=== PATIENT | female | born 1965 | race Caucasian/White ===

== ENCOUNTER → 2017-10-07 | Outpatient (CLI) | payer OTHER ==
--- NOTE | 2017-10-08 07:24 | RAD ---
Chest, 2 views, 10/07/2017: History: Cough, congestion, chest pain Comparison is made to a study from 09/03/2016. The heart size is normal. There are mild parenchymal scars. No acute infiltrate is seen. There is no evidence of pleural fluid. IMPRESSION: No acute cardiopulmonary abnormality is detected.
== END | disposition home or self-care (01) ==
LOC: RAD 18:54
PROVIDERS: ATTEND Nurse Practitioner Family
DX: R05 Cough (principal); R07.9 Chest pain, unspecified; D86.9 Sarcoidosis, unspecified
CPT/HCPCS: 71046

== ENCOUNTER 2018-06-06 21:04 | Emergency (ER) | payer OTHER ==
[~2018-06-06] VITALS: Ht 149.9 cm; Wt 80.5 kg
[2018-06-06] MEDS ORDERED: IV RINGERS SOLUTION,LACTATED 1,000 ML IV SCH (21:08)
[2018-06-06] MEDS ORDERED: VALPROATE SODIUM 500 MG in IV NORMAL SALINE 50ML 50 ML IV STA (21:08)
--- NOTE | 2018-06-06 21:08 | ED.ADGEN ---
Past History Past Medical History: Migraines Past Medical History History of Lyme's, history of sarcoid, history of iritis right eye Past Surgical History: Hysterectomy Past Surgical History Lung biopsy Adult General Chief Complaint Chief Complaint ".. I have a burning headache the last four days..." HPI HPI Patient is a 52 year old female who presents with above hx and complaints of headache. Headache is been present the last 4 days. Patient states she does get migraines. This one seemed more severe than usual. Most for her migraines resolve with Tylenol compounds. Patient denies any trauma. Patient denies any fever or chills. Patient denies any immunosuppression. Patient does have a history of sarcoid, Lyme disease, and iritis. Patient denies any visual changes. Patient states headache started this time and posterior scalp at the tops of neck. No history of travel or specific ill contacts. Review of Systems Review of Systems Constitutional: Denies fever or chills [] Eyes: Denies change in visual acuity, redness, or eye pain [] HENT: Denies nasal congestion or sore throat [] Respiratory: Denies cough or shortness of breath [] Cardiovascular: No additional information not addressed in HPI [] GI: Denies abdominal pain, nausea, vomiting, bloody stools or diarrhea [] : Denies dysuria or hematuria [] Musculoskeletal: Denies back pain or joint pain [] Integument: Denies rash or skin lesions [] Neurologic: Complaints of headache. Patient denies, focal weakness or sensory changes [] Endocrine: Denies polyuria or polydipsia [] All other systems were reviewed and found to be within normal limits, except as documented in this note. Family History Family History Noncontributory Current Medications Current Medications Current Medications Medications (Trade) Dose Ordered Sig/Maria C Start Time Stop Time Status Last Admin Dose Admin Ketorolac Tromethamine (Toradol 30mg Vial) 30 mg 1X ONCE 06/06/18 23:30 06/06/18 23:31 DC 06/06/18 23:23 30 MG Lactated Ringer's 1,000 ml @ 1,000 mls/hr Q1H 06/06/18 21:08 06/06/18 22:17 DC 06/06/18 22:29 1,000 MLS/HR Ondansetron HCl (Zofran) 8 mg 1X ONCE 06/06/18 22:15 06/06/18 22:17 DC 06/06/18 22:29 8 MG Valproic Acid 500 mg/Sodium Chloride 55 ml @ 55 mls/hr 1X STAT 06/06/18 21:08 06/06/18 22:17 DC 06/06/18 22:33 55 MLS/HR Allergies Allergies Allergies Coded Allergies Type Severity Reaction Last Updated Verified amoxicillin Allergy Unknown 06/06/18 Yes clavulanic acid Allergy Unknown 06/06/18 Yes erythromycin base Allergy Unknown 06/06/18 Yes fentanyl Allergy Unknown 06/06/18 Yes Physical Exam Physical Exam Constitutional: Well developed, well nourished, moderately acute distress, non- toxic appearance. [] HENT: Normocephalic, atraumatic, bilateral external ears normal, oropharynx moist, no oral exudates, nose normal. [] Eyes: PERRLA, EOMI, conjunctiva normal, no discharge. [] Glasses Neck: Normal range of motion, no tenderness, supple, no stridor. [] Cardiovascular: Bradycardia Heart rate regular rhythm, no murmur [] Lungs & Thorax: Bilateral breath sounds equal at apex auscultation []left chest wall scar. Abdomen: Bowel sounds normal, soft, no tenderness, no masses, no pulsatile masses. Old surgery scar Skin: Warm, dry, no erythema, no rash. [] Back: No tenderness, no CVA tenderness. [] Extremities: No tenderness, no cyanosis, no clubbing, ROM intact, no edema. [] Neurologic: Alert and oriented X 3, normal motor function, normal sensory function, no focal deficits noted. []Patient attempt without problems. DTRs +2 patella and brachial. [employer] Specialist equal. Psychologic: Affect anxious, judgement normal, mood normal. [] Current Patient Data Lab Results Laboratory Tests Test 06/06/18 21:40 White Blood Count 5.1 x10^3/uL (4.0-11.0) Red Blood Count 4.66 x10^6/uL (3.50-5.40) Hemoglobin 14.2 g/dL (12.0-15.5) Hematocrit 42.2 % (36.0-47.0) Mean Corpuscular Volume 91 fL (79-100) Mean Corpuscular Hemoglobin 30 pg (25-35) Mean Corpuscular Hemoglobin Concent 34 g/dL (31-37) Red Cell Distribution Width 13.1 % (11.5-14.5) Platelet Count 275 x10^3/uL (140-400) Neutrophils (%) (Auto) 63 % (31-73) Lymphocytes (%) (Auto) 25 % (24-48) Monocytes (%) (Auto) 9 % (0-9) Eosinophils (%) (Auto) 3 % (0-3) Basophils (%) (Auto) 1 % (0-3) Neutrophils # (Auto) 3.2 x10^3uL (1.8-7.7) Lymphocytes # (Auto) 1.3 x10^3/uL (1.0-4.8) Monocytes # (Auto) 0.4 x10^3/uL (0.0-1.1) Eosinophils # (Auto) 0.1 x10^3/uL (0.0-0.7) Basophils # (Auto) 0.0 x10^3/uL (0.0-0.2) Erythrocyte Sedimentation Rate 15 (0-25) Prothrombin Time 10.0 SEC (9.4-11.4) Prothrombin Time INR 1.0 (0.9-1.1) PTT 25 SEC (23-33) Sodium Level 140 mmol/L (136-145) Potassium Level 3.6 mmol/L (3.5-5.1) Chloride Level 101 mmol/L (98-107) Carbon Dioxide Level 27 mmol/L (21-32) Anion Gap 12 (6-14) Blood Urea Nitrogen 20 mg/dL (7-20) Creatinine 0.9 mg/dL (0.6-1.0) Estimated GFR (Cockcroft-Gault) 66.3 Glucose Level 87 mg/dL (70-99) Calcium Level 10.2 mg/dL (8.5-10.1) H Magnesium Level 2.0 mg/dL (1.8-2.4) Total Bilirubin 0.5 mg/dL (0.2-1.0) Direct Bilirubin 0.1 mg/dL (0.0-0.2) Aspartate Amino Transferase (AST) 22 U/L (15-37) Alanine Aminotransferase (ALT) 36 U/L (14-59) Alkaline Phosphatase 60 U/L (46-116) Creatine Kinase 34 U/L (26-192) Troponin I Quantitative < 0.017 ng/mL (0-0.055) Total Protein 8.0 g/dL (6.4-8.2) Albumin 4.2 g/dL (3.4-5.0) EKG EKG My interpretation of EKG shows a sinus rhythm at 62 bpm. No acute morphology[] Radiology/Procedures Radiology/Procedures My interpretation of CT of head shows no shift, mass, edema, bleed, or fracture. No significant sinus disease appreciated.[] Course & Med Decision Making Course & Med Decision Making Pertinent Labs and Imaging studies reviewed. (See chart for details). Patient follow-up primary care. Patient follow-up with neurology. Patient review labs and ED workup for her migraine. Patient currently declines spinal tap at this time. Patient return if any concerns. Prescription given for Zofran for nausea. Patient resumed her current protocols for her migraine headaches. [] Final Impression Final Impression 1. Migraine headache[] 2. History of sarcoid 3. History of Lyme's disease Dragon Disclaimer Dragon Disclaimer This electronic medical record was generated, in whole or in part, using a voice recognition dictation system. VISHAL AVILA MD Jun 06, 2018 21:08
--- NOTE | 2018-06-06 21:41 | RAD ---
CT head without contrast HISTORY: Posterior head pain, headache, neck pain. TECHNIQUE: [address] imaging skull base to vertex. FINDINGS: No intracranial hemorrhage, mass, hydrocephalus, extra-axial fluid collections or infarction. No acute ischemic change. Orbits, mastoids, paranasal sinuses and bones are unremarkable. IMPRESSION: No acute intracranial CT abnormality. Exposure: One or more of the following individualized dose reduction techniques were utilized for this examination: 1. Automated exposure control 2. Adjustment of the mA and/or kV according to patient size 3. Use of iterative reconstruction technique Electronically signed by: Lance Lock MD (06/06/2018 9:38 PM) [id number]
[2018-06-06 21:56] LABS: BASO % 1 % (0-3); EOS # 0.1 x10^3/uL (0.0-0.7); EOS % 3 % (0-3); HEMATOCRIT 42.2 % (36.0-47.0); HEMOGLOBIN 14.2 g/dL (12.0-15.5); LYMPH # 1.3 x10^3/uL (1.0-4.8); LYMPH % 25 % (24-48); MEAN CORPUSCULAR HEMOGLOBIN 30 pg (25-35); MEAN CORPUSCULAR HGB CONC 34 g/dL (31-37); MEAN CORPUSCULAR VOLUME 91 fL (79-100); MONO # 0.4 x10^3/uL (0.0-1.1); MONO % 9 % (0-9); NEUT # 3.2 x10^3uL (1.8-7.7); NEUT % 63 % (31-73); PLATELET COUNT 275 x10^3/uL (140-400); RED BLOOD COUNT 4.66 x10^6/uL (3.50-5.40); RED CELL DISTRIBUTION WIDTH 13.1 % (11.5-14.5); WHITE BLOOD COUNT 5.1 x10^3/uL (4.0-11.0)
[2018-06-06 22:11] LABS: ALBUMIN 4.2 g/dL (3.4-5.0); CALCIUM 10.2 mg/dL (8.5-10.1); CREATININE 0.9 mg/dL (0.6-1.0); DIRECT BILIRUBIN 0.1 mg/dL (0.0-0.2); GFR 66.3; POTASSIUM 3.6 mmol/L (3.5-5.1); TOTAL BILIRUBIN 0.5 mg/dL (0.2-1.0)
[2018-06-06] MEDS ORDERED: ONDANSETRON PF 4 MG/2 ML VIAL. IV ONE (22:15)
[2018-06-06 23:02] LABS: SEDIMENTATION RATE 15 (0-25)
[2018-06-06 23:15] VITALS: BP 106/74
[2018-06-06] MEDS ORDERED: ONDA8TAB12 PO (23:21)
[2018-06-06] MEDS ORDERED: KETOROLAC 30 MG/ML VIAL. IV ONE (23:30)
[2018-06-07 00:04] LABS: BACTERIA,URINE FEW /HPF (0-FEW); BILIRUBIN,URINE NEG (NEG); CLARITY,URINE HAZY; COLOR,URINE YELLOW; GLUCOSE,URINE NEG (NEG); NITRITE,URINE NEG (NEG); UROBILINOGEN,URINE 0.2 mg/dL (0.2 mg/dL); WBC,URINE 0 /HPF (0-4)
[2018-06-07 00:05] LABS: SQUAMOUS EPITHELIAL CELL,UR OCC /LPF
[2018-06-07 00:07] LABS: BARBITURATES NEG (NEG); BENZODIAZEPINES NEG (NEG); CANNABINOIDS NEG (NEG); COCAINE NEG (NEG); METHADONE NEG (NEG); OPIATES NEG (NEG); PHENCYCLIDINE NEG (NEG)
[2018-06-07 00:08] LABS: AMPHETAMINE/METHAMPHETAMINE NEG (NEG)
--- NOTE | 2018-06-11 08:20 | EKG ---
[address] [address] Test Date: 2018-06-06 Test Time: 21:30:03 Pat Name: COSMO RIVERA Department: Room: Gender: F [employer]: : 1965 Requested By: VISHAL AVILA Order Number: [id number] Reading MD: Measurements Intervals Echo Rate: P: TN: QRS: QRSD: T: QT: QTc: Interpretive Statements
== END 2018-06-06 23:40 | disposition home or self-care (01) ==
LOC: ER 21:04
DX: G43.909 Migraine, unspecified, not intractable, without status migrainosus (principal); Z88.1 Allergy status to other antibiotic agents; Z88.4 Allergy status to anesthetic agent
CPT/HCPCS: 36415; 70450; 80048; 80076; 80307; 81001; 82550; 83735; 84443; 84484; 85025; 85610; 85651; 85730; 96365; 96375; 99285; J1885; J2405; J3490; J7120